=== PATIENT | male | born 1975 | race Caucasian/White ===

== ENCOUNTER 2024-02-24 15:08 | Emergency (ER) | payer BC ==
[2024-02-24] MEDS: Tetracaine HCl/PF 0.5% 4 ML Bottle EYEBOTH STA (15:31)
[2024-02-24] MEDS: Diphtheria,Pertussis(Acell),Tetanus Vaccine 0.5 ML Syringe IM ONE (16:49)
== END 2024-02-24 17:06 | disposition home or self-care (01) ==
LOC: MW.ED 15:08
DX: Z77.098 Contact with and (suspected) exposure to other hazardous, chiefly nonmedicinal, chemicals (principal)
CPT/HCPCS: 90471; 90715; 99283; 99283-25; J3490